=== PATIENT | female | born 1980 | race Caucasian/White ===

== ENCOUNTER 2016-06-04 12:34 | Emergency (ER) | payer OTHER ==
--- NOTE | 2016-06-04 13:58 | ER Document Report ---
ED Hand/Wrist Injury - General Chief Complaint: Hand Pain Stated Complaint: LEFT HAND PAIN Mode of Arrival: Ambulatory Information source: Patient Notes: 36 y/o F presents to ED c/o left hand pain and swelling. Pt reports was at work taking out the trash when she felt a pinch to the top of her hand. Reports patient initially did not notice any problems with her hand however shortly thereafter noticed area becoming tender, red, and swollen. States did not visualize any insect and denies obvious injury. Denies fever, numbness, tingling. TRAVEL OUTSIDE OF THE [place] IN LAST 30 DAYS: No - HPI Injury to: Hand Onset: Just prior to arrival Where: Work Timing: Still present Quality of pain: Achy Severity: Mild Pain Level: 2 - Related Data Allergies/Adverse Reactions: No Known Allergies Allergy (Verified 12/05/13 08:07) Past Medical History - General Information source: Patient - Social History Smoking Status: Current Every Day Smoker Chew tobacco use (# tins/day): Yes Frequency of alcohol use: None Drug Abuse: None Lives with: Family Family History: Reviewed & Not Pertinent Patient has suicidal ideation: No Patient has homicidal ideation: No - Past Medical History Cardiac Medical History: Denies: Hx Heart Attack, Hx Hypertension Pulmonary Medical History: Denies: Hx Asthma Neurological Medical History: Reports: Hx Migraine. Denies: Hx Cerebrovascular Accident, Hx Seizures Renal/ Medical History: Denies: Hx Peritoneal Dialysis GI Medical History: Denies: Hx Hepatitis, Hx Hiatal Hernia, Hx Ulcer Psychiatric Medical History: Reports: Hx Anxiety Infectious Medical History: Denies: Hx Hepatitis Surgical Hx: Negative Past Surgical History: Reports: Hx Tubal Ligation. Denies: Hx Mastectomy, Hx Open Heart Surgery, Hx Pacemaker - Immunizations Hx Diphtheria, Pertussis, Tetanus Vaccination: Yes Review of Systems - Review of Systems Constitutional: No symptoms reported EENT: No symptoms reported Cardiovascular: No symptoms reported Respiratory: No symptoms reported Gastrointestinal: No symptoms reported Genitourinary: No symptoms reported Female Genitourinary: No symptoms reported Musculoskeletal: See HPI Skin: No symptoms reported Hematologic/Lymphatic: No symptoms reported Neurological/Psychological: No symptoms reported -: Yes All other systems reviewed and negative Physical Exam - Vital signs Vitals: Temp Pulse Resp BP Pulse Ox 97.5 F 83 20 124/72 100 06/04/16 12:45 06/04/16 12:45 06/04/16 12:45 06/04/16 12:45 06/04/16 12:45 - General General appearance: Appears well, Alert In distress: None - HEENT Head: Normocephalic, Atraumatic Eyes: Normal Pupils: PERRL - Respiratory Respiratory status: No respiratory distress Chest status: Nontender Breath sounds: Normal Chest palpation: Normal - Cardiovascular Rhythm: Regular Heart sounds: Normal auscultation Murmur: No Pulses: Normal: Radial Normal capillary refill: Yes - Abdominal Inspection: Normal Distension: No distension Bowel sounds: Normal Tenderness: Nontender Organomegaly: No organomegaly - Back Back: Normal, Nontender - Extremities General upper extremity: Normal inspection, Nontender, Normal color, Normal ROM , Normal strength, Normal temperature. No: Edema General lower extremity: Normal inspection, Nontender, Normal color, Normal ROM , Normal strength, Normal temperature, Normal weight bearing. No: Edema, Annika' s sign Arm: Normal, Nontender Elbow: Normal, Nontender Forearm: Normal, Nontender Wrist: Normal, Nontender Hand: Tender - Patient has tenderness to palpation to the dorsal aspect of left hand with mild localized swelling and erythema. No obvious puncture wound, foreign body, instability, or deformity. No drainage, warmth, or induration. Full active, passive, and against resistance range of motion. Neurovascular function intact with immediate capillary refill, palpable pulses, and distal sensation intact., No evidence of FB, Swelling. No: Deformity, Instability, Tendon deficit Course - Re-evaluation Re-evalutation: 06/04/16 15:00 Patient hemodynamically stable, in no distress, afebrile. X-ray unremarkable. Patient's symptoms resolved while in the ED. No suggestion of cellulitis, abscess, or other infectious or vascular etiology. Will treat for likely localized reaction to insect bite. Patient appears stable for discharge and agrees with care, follow-up, and ED return precautions. - Vital Signs Vital signs: Temp Pulse Resp BP Pulse Ox 98.7 F 83 20 117/58 L 100 06/04/16 15:11 06/04/16 15:11 06/04/16 15:11 06/04/16 15:11 06/04/16 15:11 - Diagnostic Test Radiology reviewed: Image reviewed, Reports reviewed Discharge - Discharge Clinical Impression: Hand pain, left Insect bite Qualifiers: Encounter type: initial encounter Qualified Code(s): W57.XXXA - Bitten or stung by nonvenomous insect and other nonvenomous arthropods, initial encounter Condition: Stable Disposition: HOME, SELF-CARE Instructions: Swollen Insect Bite or Sting ([facility]), Ice & Elevation ([facility]), Use of Xags-Yyy-Ghosobw Ibuprofen ([facility]), Acetaminophen, Use of Diphenhydramine Additional Instructions: Follow-up with your primary care provider on Monday. Return to the emergency department for any worsening symptoms or concerns. Forms: Return to Work Referrals: [facility] [NO LOCAL MD] - Follow up in 3-5 days
[2016-06-04 15:11] VITALS: BP 117/58
== END 2016-06-04 15:11 | disposition home or self-care (01) ==
LOC: ER 12:34
DX: M79.642 Pain in left hand (principal); F17.200 Nicotine dependence, unspecified, uncomplicated; W57.XXXA Bitten or stung by nonvenomous insect and other nonvenomous arthropods, initial encounter
CPT/HCPCS: 99283

== ENCOUNTER 2016-11-13 23:04 | Emergency (ER) | payer SELFPAY ==
[2016-11-14] MEDS ORDERED: DIPHENHYDRAMINE HCL 50 MG CAPSULE PO ONE (00:29)
--- NOTE | 2016-11-14 00:31 | ER Document Report ---
ED Hand/Wrist Injury - General Chief Complaint: Allergic Reaction Stated Complaint: HAND SWELLING,NUMBNESS Time Seen by Provider: 11/14/16 00:00 Notes: The patient is a 36-year-old female who presents with left hand swelling and a rash over the past 2 hours. She has [address] and is unable to get them off. She is right-handed and has a history of cocaine abuse. She denies any new soaps, medications, food, detergents or recent injection into her left arm. TRAVEL OUTSIDE OF THE [place] IN LAST 30 DAYS: No - Related Data Allergies/Adverse Reactions: No Known Allergies Allergy (Verified 11/13/16 23:26) Past Medical History - General Information source: Patient - Social History Smoking Status: Unknown if Ever Smoked Family History: Reviewed & Not Pertinent - Past Medical History Cardiac Medical History: Denies: Hx Heart Attack, Hx Hypertension Pulmonary Medical History: Denies: Hx Asthma Neurological Medical History: Reports: Hx Migraine. Denies: Hx Cerebrovascular Accident, Hx Seizures Renal/ Medical History: Denies: Hx Peritoneal Dialysis GI Medical History: Denies: Hx Hepatitis, Hx Hiatal Hernia, Hx Ulcer Psychiatric Medical History: Reports: Hx Anxiety Infectious Medical History: Denies: Hx Hepatitis Past Surgical History: Reports: Hx Tubal Ligation. Denies: Hx Mastectomy, Hx Open Heart Surgery, Hx Pacemaker - Immunizations Hx Diphtheria, Pertussis, Tetanus Vaccination: Yes Review of Systems - Review of Systems Notes: REVIEW OF SYSTEMS: CONSTITUTIONAL: -fevers, -chills EENT: -eye pain, -difficulty swallowing, -nasal congestion CARDIOVASCULAR:-chest pain, -syncope. RESPIRATORY: -cough, -SOB GASTROINTESTINAL: -abdominal pain, - nausea, -vomiting, -diarrhea GENITOURINARY: -dysuria, -hematuria MUSCULOSKELETAL: +left hand pain and swelling, -back pain, -neck pain SKIN: +left hand redness HEMATOLOGIC: -easy bruising or bleeding. LYMPHATIC: -swollen, enlarged glands. NEUROLOGICAL: -altered mental status or loss of consciousness, -headache, - neurologic symptoms PSYCHIATRIC: -anxiety, -depression. ALL OTHER SYSTEMS REVIEWED AND NEGATIVE. Physical Exam - Vital signs Vitals: Pulse Resp BP Pulse Ox 104 H 16 117/93 H 100 11/13/16 23:27 11/13/16 23:27 11/13/16 23:27 11/13/16 23:27 - Notes Notes: PHYSICAL EXAMINATION: GENERAL: Well-appearing, well-nourished and in no acute distress. HEAD: Atraumatic, normocephalic. EYES: Pupils equal round and reactive to light, extraocular movements intact, sclera anicteric, conjunctiva are normal. ENT: nares patent, oropharynx clear without exudates. Moist mucous membranes. NECK: Normal range of motion, supple without lymphadenopathy LUNGS: Breath sounds clear to auscultation bilaterally and equal. No wheezes rales or rhonchi. HEART: Regular rate and rhythm without murmurs ABDOMEN: Soft, nontender, normoactive bowel sounds. No guarding, no rebound. No masses appreciated. EXTREMITIES: Urticaria over left forearm and hand, swelling of knuckles, 4 rings on left fingers that are unable to be removed. Normal range of motion, track chow over left forearm. No cyanosis. NEUROLOGICAL: Cranial nerves grossly intact. Normal speech, normal gait. Normal sensory and motor exams. PSYCH: Normal mood, normal affect. Course - Re-evaluation Re-evalutation: The L4 rings on her left fingers were immediately removed using a ring cutter due to the swelling and redness. After the removal, she had brisk capillary refill and her pain resolved. She has urticaria on her left forearm and hands, but there is evidence of track chow and a history of cocaine abuse in the past. She denies any injections. No signs of anaphylaxis. After Benadryl, the rash resolved. Instructed patient about return precautions and she understands - Vital Signs Vital signs: Temp Pulse Resp BP Pulse Ox 104 H 16 117/93 H 100 11/13/16 23:27 11/13/16 23:27 11/13/16 23:27 11/13/16 23:27 Procedures - Additional Procedures OTHER Time performed: 00:54 Additional Procedures: Other - Ring removal Notes: Using mechanical ring cutter, the patient's four rings were removed from her left fingers successfully. Discharge - Discharge Clinical Impression: Swelling of left hand, Tight ring on finger Condition: Stable Disposition: HOME, SELF-CARE Additional Instructions: ACUTE ALLERGIC REACTION: Your symptoms are due to an allergic reaction. Allergy can cause hives, swelling of the hands, feet, and face, hoarseness, and difficulty swallowing or breathing. It may be due to exposure to medication, animal dander, foods, infection, or insect bites. Medication is a common cause, even when prior use of this same medication caused no problems. Acute treatment may include adrenalin and antihistamines. Usually, the specific allergic agent can't be identified unless repeated episodes occur. Home treatment includes the following: (1) Stop any suspicious medications. This will be discussed with you. (2) Oral antihistamines for the next four to five days. Example, diphenhydramine (Benadryl) every four hours. (3) You may also use cimetidine (Tagamet), ranitidine (Zantac), or famotidine ( Pepcid) every four hours if diphenhydramine is not controlling itching and hives. (4) Avoid aspirin until the hives completely disappear. (5) Avoid hot baths or showers until the hives are completely gone. Call the doctor if faintness, difficulty swallowing, tightness in the chest , or wheezing occurs. ANTIHISTAMINES: An antihistamine has been given and/or prescribed to control your symptoms. Antihistamines are used for many reasons, including itching, watering eyes, runny nose, allergic swelling, hives, and insect stings. Antihistamines may cause drowsiness, especially with the first dose. Do not operate machinery or drive while under the effects of the medication. Other common side effects include dry mouth and eyes. In older persons, antihistamines can occasionally cause urinary retention, constipation, and trouble focusing the eyes. Do not combine the medication with alcohol, or with any other medication without talking to your doctor. USE OF DIPHENHYDRAMINE: The use of diphenhydramine (Benadryl) has been recommended to control allergic symptoms. The 25 mg strength is available over- the-counter, as well as the elixir. This antihistamine is used for many symptoms. It's useful for itching, watering eyes and nose, allergic swelling, hives, and insect stings. The medication can be repeated four times daily. Age Elixir (12.5 mg/tsp) 25 mg pill 2-3 yr 1/2 tsp 4-8 yr 1 tsp 9-14 yr 2 tsp one tab adult 1-2 tabs Antihistamines may cause drowsiness, especially with the first dose. Do not operate machinery or drive while under the effects of the medication. Do not combine the medication with alcohol, or with any other medication without talking to your doctor. FOLLOW-UP CARE: If you have been referred to a physician for follow-up care, call the physician s office for an appointment as you were instructed or within the next two days. If you experience worsening or a significant change in your symptoms, notify the physician immediately or return to the Emergency Department at any time for re-evaluation.
[2016-11-14 00:49] VITALS: BP 124/78
== END 2016-11-14 00:30 | disposition home or self-care (01) ==
LOC: ER 23:04
DX: S60.449A External constriction of unspecified finger, initial encounter (principal); M79.89 Other specified soft tissue disorders; W49.04XA Ring or other jewelry causing external constriction, initial encounter; Z98.51 Tubal ligation status
CPT/HCPCS: 99283

== ENCOUNTER 2016-11-19 01:01 | Emergency (ER) | payer OTHER ==
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
[2016-11-19] MEDS ORDERED: KETOROLAC TROMETHAMINE INJ/PF 30 MG/1 ML SDV IV ONE (02:42)
[2016-11-19] MEDS ORDERED: HYDROCODONE/ACETAMINOPHEN 5-325 MG TABLET PO ONE (02:42)
[2016-11-19 03:13] VITALS: BP 123/80
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
== END 2016-11-19 03:25 | disposition home or self-care (01) ==
LOC: ER 01:01 → EEVIPCON 01:01 → ER 03:25
DX: M79.672 Pain in left foot (principal); F14.10 Cocaine abuse, uncomplicated; V29.9XXA Motorcycle rider (driver) (passenger) injured in unspecified traffic accident, initial encounter; F17.200 Nicotine dependence, unspecified, uncomplicated
CPT/HCPCS: 99284; 96374; 73610; 73130; 70450; 71260; 72125; 74177; J1885